=== PATIENT | female | born 1940 | race Caucasian/White ===

== ENCOUNTER → 2024-04-03 08:57 | Outpatient (REF) | payer MEDICARE, BC, SELFPAY ==
[2024-04-03 10:26] LABS: % Basophils 0.7 % (0-2); % Eosinophils 2.1 % (0-6); % Immature Granulocytes 0.3 % (0-0.5); % Lymphocytes 16.1 % (20.5-51.1); % Monocytes 9.2 % (1.7-9.3); % Neutrophils 71.6 % (42.2-75.2); Absolute Basophils 0.1 10^3/uL (0-0.2); Absolute Eosinophils 0.2 10^3/uL (0-0.7); Absolute Lymphocytes 1.1 10^3/uL (1.2-3.4); Absolute Monocytes 0.7 10^3/uL (0.1-0.6); Hematocrit 44.4 % (37.0-47.0); Hemoglobin 14.7 g/dL (12.0-16.0); Mean Corp Hgb Conc. 33.1 g/dL (33.0-37.0); Mean Corpuscular Hgb 30.4 pg (27.0-31.0); Mean Corpuscular Volume 91.9 fL (81.0-99.0); Mean Platelet Volume 9.9 fL (7.4-10.4); Nucleated Red Blood Cells % 0 %; Platelet Count 274 10^3/uL (130-400); Red Blood Cell Count 4.83 10^6/uL (4.20-5.40); Red Cell Dist. Width 12.7 % (11.5-14.5)
[2024-04-03 10:48] LABS: ALT (SGPT) 21 U/L (0-35); AST (SGOT) 28 U/L (14-36); Albumin 4.6 g/dl (3.5-5.0); Alkaline Phosphatase 55 U/L (38-126); Blood Urea Nitrogen 14 mg/dl (7-17); Calcium 9.5 mg/dl (8.4-10.2); Carbon Dioxide 33 mmol/L (22-30); Chloride 95 mmol/L (98-107); Glucose 95 mg/dl (70-99); Potassium 4.6 mmol/L (3.5-5.1); Sodium 138 mmol/L (135-145); Total Bilirubin 1.1 mg/dl (0.2-1.3); Total Cholesterol 224 mg/dl (50-199); Triglyceride 97 mg/dl (10-149); Very Low Density Lipoprotein 19 mg/dl (0-30); eGFR > 60.00
[2024-04-03 10:59] LABS: HDL Cholesterol 148 mg/dl; LDL Cholesterol, Calculated 57 mg/dl
[2024-04-03 11:04] LABS: Vitamin D, 25-OH*** 38.9 ng/mL (30-80)
[2024-04-03 11:18] LABS: TSH 1.84 uIU/ml (0.47-4.68)
== END ==
LOC: REG 08:57
PROVIDERS: ATTENDING PHYSICIAN Family Medicine
DX: Z00.00 Encounter for general adult medical examination without abnormal findings (principal); Z13.0 Encounter for screening for diseases of the blood and blood-forming organs and certain disorders involving the immune mechanism; E78.2 Mixed hyperlipidemia; Z13.29 Encounter for screening for other suspected endocrine disorder; M81.0 Age-related osteoporosis without current pathological fracture
CPT/HCPCS: 36415; 80053; 80061; 82306; 84443; 85025

== ENCOUNTER → 2024-07-04 12:51 | Outpatient (REF) | payer MEDICARE, BC, SELFPAY ==
[2024-07-04 15:05] LABS: % Basophils 1.1 % (0-2); % Eosinophils 1.2 % (0-6); % Immature Granulocytes 0.3 % (0-0.5); % Lymphocytes 16.3 % (20.5-51.1); % Monocytes 8.6 % (1.7-9.3); % Neutrophils 72.5 % (42.2-75.2); Absolute Basophils 0.1 10^3/uL (0-0.2); Absolute Eosinophils 0.1 10^3/uL (0-0.7); Absolute Lymphocytes 1.1 10^3/uL (1.2-3.4); Absolute Monocytes 0.6 10^3/uL (0.1-0.6); Absolute Neutrophils 4.7 10^3/uL (1.4-6.5); Hematocrit 42.4 % (37.0-47.0); Mean Corpuscular Hgb 31.4 pg (27.0-31.0); Mean Corpuscular Volume 95.1 fL (81.0-99.0); Nucleated Red Blood Cells % 0 %; Platelet Count 263 10^3/uL (130-400); Red Blood Cell Count 4.46 10^6/uL (4.20-5.40); White Blood Cell Count 6.5 10^3/uL (4.8-10.8)
[2024-07-04 15:18] LABS: C-Reactive Protein < 5.00 mg/L (0.0-10.00)
[2024-07-04 15:26] LABS: Erythrocyte Sed Rate 10 mm/hour (0-20)
== END ==
LOC: REG 12:51
PROVIDERS: ATTENDING PHYSICIAN Physician Assistant
DX: R51.9 Headache, unspecified (principal)
CPT/HCPCS: 36415; 85025; 85652; 86140

== ENCOUNTER → 2024-07-22 15:17 | Outpatient (REF) | payer MEDICARE, BC, SELFPAY ==
[2024-07-22 16:21] LABS: % Eosinophils 1.5 % (0-6); % Immature Granulocytes 0.3 % (0-0.5); % Lymphocytes 16.5 % (20.5-51.1); % Monocytes 9.6 % (1.7-9.3); % Neutrophils 71.1 % (42.2-75.2); Absolute Basophils 0.1 10^3/uL (0-0.2); Absolute Eosinophils 0.1 10^3/uL (0-0.7); Absolute Monocytes 0.6 10^3/uL (0.1-0.6); Absolute Neutrophils 4.4 10^3/uL (1.4-6.5); Hematocrit 40.3 % (37.0-47.0); Hemoglobin 13.6 g/dL (12.0-16.0); Mean Corp Hgb Conc. 33.7 g/dL (33.0-37.0); Mean Corpuscular Volume 94.8 fL (81.0-99.0); Mean Platelet Volume 9.7 fL (7.4-10.4); Nucleated Red Blood Cells % 0 %; Platelet Count 256 10^3/uL (130-400); Red Blood Cell Count 4.25 10^6/uL (4.20-5.40); White Blood Cell Count 6.1 10^3/uL (4.8-10.8)
[2024-07-22 16:36] LABS: Erythrocyte Sed Rate 2 mm/hour (0-20)
[2024-07-22 16:46] LABS: C-Reactive Protein < 5.00 mg/L (0.0-10.00)
[2024-07-23 11:06] LABS: Lyme Antibody Screen, EIA Equivocal (Negative)
== END ==
LOC: REG 15:17
PROVIDERS: ATTENDING PHYSICIAN Physician Assistant
DX: R51.9 Headache, unspecified (principal)
CPT/HCPCS: 36415; 85025; 85652; 86140; 86617; 86618

== ENCOUNTER → 2024-07-23 09:14 | Outpatient (REF) | payer MEDICARE, BC, SELFPAY | LOC: HWRAD 09:14 | PROVIDERS: ATTENDING PHYSICIAN Physician Assistant; FAMILY PHYSICIAN Family Medicine | DX: R51.9 Headache, unspecified (principal) | CPT/HCPCS: 70450 ==

== ENCOUNTER → 2024-08-14 09:59 | Outpatient (REF) | payer MEDICARE, BC, SELFPAY | LOC: HWRCS 09:59 | PROVIDERS: ATTENDING PHYSICIAN Internal Medicine Cardiovascular Disease; FAMILY PHYSICIAN Family Medicine | DX: I34.0 Nonrheumatic mitral (valve) insufficiency (principal) | CPT/HCPCS: 93306 ==

== ENCOUNTER → 2024-10-30 09:58 | Outpatient (REF) | payer MEDICARE, BC, SELFPAY | LOC: HWWDC 09:58 | PROVIDERS: ATTENDING PHYSICIAN Family Medicine; REFERRING PHYSICIAN Obstetrics & Gynecology Gynecology | DX: Z12.31 Encounter for screening mammogram for malignant neoplasm of breast (principal) | CPT/HCPCS: 77063; 77067 ==

== ENCOUNTER 2025-02-15 09:10 | Emergency (ER) | payer MEDICARE, BC, SELFPAY ==
[2025-02-15 09:12] VITALS: BP 126/86
[2025-02-15 10:13] LABS: Hematocrit 43.6 % (37.0-47.0); Hemoglobin 14.2 g/dL (12.0-16.0); Mean Corp Hgb Conc. 32.6 g/dL (33.0-37.0); Mean Corpuscular Volume 94.8 fL (81.0-99.0); Nucleated Red Blood Cells % 0 %; Platelet Count 251 10^3/uL (130-400); Red Cell Dist. Width 12.9 % (11.5-14.5)
[2025-02-15] MEDS: OMNIPAQUE 50 ML PO (10:17)
[2025-02-15 10:39] LABS: Urine Character Clear (Clear)
--- NOTE | 2025-02-15 10:40 | ED.GENMED ---
History of Present Illness
General
Chief Complaint: Abdominal Pain
Time Seen by Provider: 02/15/25 09:49
History of Present Illness
History of Present Illness:
see MDM
Past History
Past History
ED Past Medical History: GERD and Other (Lung issues only 50% compacity)
ED Past Surgical History: Orthopedic and Other (Hernia repair)
Social History
Tobacco: Non-smoker
Alcohol: Occasional
Drug: None
Personal:
Living: with family
Employment: Other
Family History
Family History: Other
Phy Exam
Physical Exam
Physical Exam:
GENERAL: Alert , in no apparent distress
EYE: pupils equal and reactive
NECK: Supple
ENT: o/p clr, mmm.
CARDIAC: Regular rate and rhythm .
LUNGS: Clear breath sounds bilaterally, no acute respiratory distress, no wheezes/rales/rhonchi
ABDOMEN: Soft, minimal tenderness RLQ, no r/g, no cvat, normal bowel sounds
NEUROLOGICAL: Alert and oriented, no focal neuro deficits
SKIN: Warm and dry, skin intact.
MUSCULOSKELETAL: No edema, well perfused. neg akira's sign
PSYCH: Normal and appropriate interaction.
Course
Orders/Labs/Results
Orders:
Orders
02/15/25 09:17
ECG [Electrocardiogram (*1)] Urgent
Reason for Study: Tachycardia
EKG- Treatment ONCE
02/15/25 10:07
Complete Blood Count/With Diff Urgent
Comprehensive Metabolic Panel Urgent
Lipase Urgent
Urinalysis Reflex To Culture Urgent
Date Specimen was Collected: 02/15/25
Time Specimen was Collected: 10:06
Urine Microscopic Reflex Cult Urgent
Urine Culture Urgent
JOHNSON Source: U
Specimen Description:
Date Specimen was Collected: 02/15/25
Time Specimen was Collected: 10:06
02/15/25 10:12
CT Abd/pel W Iv And Oral Contr Urgent
Comment:
Reason For Exam: lower abd pain, diarrhea, h/o divertic
Iohexol [Omnipaque] See Protocol PO NOW STA
02/15/25 14:27
Urinalysis Reflex To Culture Urgent
Date Specimen was Collected: 02/15/25
Time Specimen was Collected: 14:16
Comment: Clean Catch
Abnormal Lab Results
02/15/25 02/15/25
10:07 14:27
MCHC 32.6 L g/dL
(33.0-37.0)
Absolute Neuts (auto) 8.5 H 10^3/uL
(1.4-6.5)
Absolute Lymphs (auto) 0.9 L 10^3/uL
(1.2-3.4)
Absolute Monos (auto) 0.9 H 10^3/uL
(0.1-0.6)
Neutrophils % 81.2 H %
(42.2-75.2)
Lymphocytes % 9.0 L %
(20.5-51.1)
Carbon Dioxide 31 H mmol/L
(22-30)
Creatinine 0.5 L mg/dL
(0.6-1.0)
Glucose 112 H mg/dl
(70-99)
Urine Ketones 1+ A
(Negative)
Leukocyte Esterase Rfl 1+ A
(Negative)
Urine Bacteria (Reflex) Few A
(Negative)
Urine Albumin (Reflex) 1+ A
(Neg - Trace)
02/15/25 10:07
02/15/25 10:07
Vital Signs
Initial and Last Documented VS:
Initial Vital Signs
Temp Pulse Resp BP Pulse Ox
36.6 C 114 20 126/86 93
02/15/25 09:12 02/15/25 09:12 02/15/25 09:12 02/15/25 09:12 02/15/25 09:12
Last Documented Vital Signs
Temp Pulse Resp BP Pulse Ox
36.6 C 97 18 138/94 93
02/15/25 09:12 02/15/25 12:59 02/15/25 12:59 02/15/25 12:59 02/15/25 10:40
MDM/Problems Addressed
Differential Diagnosis Includes:
see MDM
MDM/Problems Addressed:
Note:
CHIEF COMPLAINT(S)
Abdominal pain and gastrointestinal discomfort after eating oysters.
HISTORY OF PRESENT ILLNESS
The patient is an 84-year-old female who presented following the onset of abdominal discomfort after consuming oysters 4 days ago.
she started with pain across loewr abdomen, cramping that was intense followed by many bouts of diarrhea.
within a few hours the diarrhea resolved and abdominal discomfort becoming more tolerable but still present, more on her RLQ. She denied experiencing fever, chills, nausea, or vomiting.
The patient has a past history of diverticulitis. she went to PCP yesterday who said if her pain persisted, then she should come to ER for appe r/o
Nursing notes report a slightly elevated heart rate, possibly due to dehydration; the patient acknowledged feeling anxious.
PAST MEDICAL AND SURIGICAL HISTORY
History of diverticulitis. Chronic bloating and discomfort, possibly related to irritable bowel syndrome.
CHRONIC MEDICAL CONDITIONS SIGNIFICANTLY AFFECTING CARE
History of diverticulitis. Possibly related irritable bowel syndrome.
SOCIAL HISTORY
Patient consumes oysters at social celebrations. No frequent visits to a electrologist.
REVIEW OF SYSTEMS
- Gastrointestinal: Abdominal pain described as crampy, alternating between constipation and diarrhea.
- Urinary: No burning sensation during urination, history of interstitial cystitis managed with topical creams.
- Cardiovascular: Elevated heart rate noted, possibly related to dehydration or anxiety.
PHYSICAL EXAM
- Abdominal: Tenderness noted in the lower right quadrant on examination.
- Cardiovascular: Elevated heart rate observed, electrocardiogram results satisfactory.
- Nursing notes reviewed; vital signs reviewed.
PLAN
Administer oral contrast for radiological evaluation to help determine the cause of symptoms. Evaluate for potential appendicitis or other gastrointestinal disorders.
DIFFERENTIAL DIAGNOSIS
The Differential Diagnosis includes, in no particular order and is not limited to:
1. Appendicitis
2. Diverticulitis
3. Gastroenteritis
4. Irritable Bowel Syndrome
5. Intestinal Obstruction
6. Celiac Disease
7. Infectious Colitis
8. Crohns Disease
9. Ulcerative Colitis
10. Acute Gastrointestinal Bleed
84 y/o F with lower abd pain and diarrhea starting 3 days ago after eating oysters
diarrhea and cramping improved but not resolved
went to PCP and was concerned about RLQ tendenress
pt decided to come for testing
no fever, vomiting, uti sxs
comfortable, well appearing, nontender or minimal tendenress to lower abd
urine was contaminated, 2nd was repeated and clear
ct neg, incidentals were discussed, copy given
d/c home
*Pulse Oximetry
SaO2: 93
Oxygen Mode of Delivery: Room air
Patient hypoxic: no (93)
*Critical Care Note
Total Time (30-74mins, 75-104mins- exclusive of procedures): Not Applicable
ED Attending Note
-
Portions of this chart may have been created with voice recognition software.� Occasional wrong word or��sound alike� substitutions may have occurred due to the inherent limitations of voice recognition software.
Discharge Plan
Departure
Patient Disposition: Home (Routine Discharge)
Date of Disposition: 02/15/25
Time of Disposition: 14:09
Patient with high blood pressure during this ER visit?: Yes
Condition: Fair
Covid-19: Not Applicable
Discharge Problem:
Abdominal pain
Instructions: Diarrhea in teens and adults, Abdominal Pain
Referrals:
Massiel Weeks MD [Family Provider, [facility]] - Follow up in 2-3 days
Activity Restrictions/Additional Instructions:
YOUR WORK UP HERE IS REASSURING
YOU HAD SOME INCIDENTAL CAT SCAN FINDINGS BUT NOTHING TO EXPLAIN YOUR PAIN
I SENT ANOTHER URINE SAMPLE TO SEE IF YOU REALLY HAVE A BLADDER INFECTION, I WILL CALL YOU WHEN IT RESULTS
RETURN FOR: FEVER, SEVERE PAIN, BLOODY DIARRHEA, VOMITING ETC
Interventions
Interventions:
*Risk Screen - Suicide Last Done: 02/15/25 09:53
*General Assessment Last Done: 02/15/25 10:01
*Neglect/Abuse Screening Last Done: 02/15/25 09:53
*ED- Fall Risk Assessment Last Done: 02/15/25 09:50
*ED COVID-19 Vaccine History Last Done: 02/15/25 09:52
*Nursing Disposition Last Done: 02/15/25 14:32
[facility] Assessment Last Done: 02/15/25 09:52
Discharge Date and Time
Discharge Date/Time: 02/15/25 14:32
Print Language: GEORGIAN
[2025-02-15 10:45] LABS: ALT (SGPT) 19 U/L (0-35); AST (SGOT) 25 U/L (14-36); Albumin 4.8 g/dl (3.5-5.0); Alkaline Phosphatase 53 U/L (38-126); Blood Urea Nitrogen 13 mg/dl (7-17); Calcium 9.0 mg/dl (8.4-10.2); Carbon Dioxide 31 mmol/L (22-30); Chloride 100 mmol/L (98-107); Glucose 112 mg/dl (70-99); Lipase 59 U/L (23-300); Potassium 4.2 mmol/L (3.5-5.1); Sodium 138 mmol/L (135-145); Total Protein 7.2 g/dl (6.3-8.2); eGFR > 60.00
[2025-02-15 11:32] LABS: Urine Red Blood Cell 0-2 /HPF (0-2); Urine Squamous Cell >30 /LPF (Few)
[2025-02-15 12:59] VITALS: BP 138/94
[2025-02-15 15:05] LABS: Urine Character Clear (Clear)
== END 2025-02-15 14:32 | disposition home or self-care (01) ==
LOC: EMR 09:10
PROVIDERS: Physician Assistant; EMERGENCY PHYSICIAN Emergency Medicine; FAMILY PHYSICIAN Family Medicine
DX: R10.30 Lower abdominal pain, unspecified (principal); R19.7 Diarrhea, unspecified
CPT/HCPCS: 99284; 74177; 80053; 81003; 81015; 83690; 85025; 87086; 93005; Q9967

== ENCOUNTER → 2025-03-06 10:23 | Outpatient (REF) | payer MEDICARE, BC, SELFPAY | LOC: HWRAD 10:23 | PROVIDERS: ATTENDING PHYSICIAN Internal Medicine Critical Care Medicine; FAMILY PHYSICIAN Family Medicine | DX: R91.8 Other nonspecific abnormal finding of lung field (principal) | CPT/HCPCS: 71250 ==

== ENCOUNTER → 2025-03-20 09:19 | Outpatient (REF) | payer MEDICARE, BC, SELFPAY | LOC: HWRAD 09:19 | PROVIDERS: ATTENDING PHYSICIAN Internal Medicine Critical Care Medicine; FAMILY PHYSICIAN Family Medicine | DX: E04.1 Nontoxic single thyroid nodule (principal) | CPT/HCPCS: 76536 ==

== ENCOUNTER → 2025-03-27 08:32 | Outpatient (REF) | payer MEDICARE, BC, SELFPAY ==
[2025-03-27 09:06] LABS: Hematocrit 41.4 % (37.0-47.0); Hemoglobin 13.6 g/dL (12.0-16.0); Mean Corp Hgb Conc. 32.9 g/dL (33.0-37.0); Mean Corpuscular Volume 92.8 fL (81.0-99.0); Nucleated Red Blood Cells % 0 %; Platelet Count 229 10^3/uL (130-400); Red Cell Dist. Width 12.5 % (11.5-14.5)
[2025-03-27 11:00] LABS: ALT (SGPT) 22 U/L (0-35); AST (SGOT) 26 U/L (14-36); Albumin 4.4 g/dl (3.5-5.0); Alkaline Phosphatase 48 U/L (38-126); Blood Urea Nitrogen 11 mg/dl (7-17); Calcium 9.3 mg/dl (8.4-10.2); Carbon Dioxide 31 mmol/L (22-30); Chloride 102 mmol/L (98-107); Glucose 94 mg/dl (70-99); Potassium 4.7 mmol/L (3.5-5.1); Sodium 137 mmol/L (135-145); Total Protein 6.8 g/dl (6.3-8.2); Very Low Density Lipoprotein 10 mg/dl (0-30); eGFR > 60.00
[2025-03-27 11:03] LABS: Vitamin D, 25-OH*** 34.7 ng/mL (30-80)
[2025-03-27 11:17] LABS: TSH 1.64 uIU/ml (0.47-4.68)
[2025-03-27 11:43] LABS: HDL Cholesterol 145 mg/dl; LDL Cholesterol, Calculated 22 mg/dl
[2025-03-27 12:44] LABS: C-Reactive Protein < 5.00 mg/L (0.0-10.00)
[2025-03-27 13:41] LABS: Vitamin B12 421 pg/ml (239-931)
[2025-03-29 22:30] LABS: ANA, IgG Reflex to HEp-2 None Detected (None Detected)
== END ==
LOC: REG 08:32
PROVIDERS: ATTENDING PHYSICIAN Family Medicine
DX: R20.0 Anesthesia of skin (principal); Z00.00 Encounter for general adult medical examination without abnormal findings; Z13.0 Encounter for screening for diseases of the blood and blood-forming organs and certain disorders involving the immune mechanism; E78.2 Mixed hyperlipidemia; Z13.1 Encounter for screening for diabetes mellitus; Z13.29 Encounter for screening for other suspected endocrine disorder; M81.0 Age-related osteoporosis without current pathological fracture
CPT/HCPCS: 36415; 80053; 80061; 82306; 82607; 84155; 84165; 84443; 85025; 85652; 86038; 86140

== ENCOUNTER → 2025-06-04 09:06 | Outpatient (REF) | payer MEDICARE, BC, SELFPAY ==
[2025-06-04 09:30] VITALS: BP 131/83; BP_SYST 94
== END ==
LOC: RADI 09:06
PROVIDERS: ATTENDING PHYSICIAN Nurse Practitioner Family; FAMILY PHYSICIAN Family Medicine
DX: E04.1 Nontoxic single thyroid nodule (principal)
CPT/HCPCS: 10005; 88173